=== PATIENT | female | born 1960 | race Caucasian/White ===

== ENCOUNTER 2023-03-13 19:08 | Emergency (ER) | payer OTHER ==
[2023-03-14 00:46] VITALS: BP 125/74; PULSE 61
== END 2023-03-13 20:05 | disposition home or self-care (01) ==
LOC: JD.ED 19:08
DX: S00.01XA Abrasion of scalp, initial encounter (principal); E78.00 Pure hypercholesterolemia, unspecified; I10 Essential (primary) hypertension; E11.9 Type 2 diabetes mellitus without complications; E66.9 Obesity, unspecified; Z68.33 Body mass index [BMI] 33.0-33.9, adult; Z79.899 Other long term (current) drug therapy; Z79.82 Long term (current) use of aspirin; Z87.891 Personal history of nicotine dependence; W20.8XXA Other cause of strike by thrown, projected or falling object, initial encounter
CPT/HCPCS: 99282; 99283

== ENCOUNTER 2024-02-08 22:51 | Emergency (ER) | payer OTHER ==
[2024-02-09] MEDS: Lidocaine 1% 10 ML MDV INJECT ONE (00:30)
[2024-02-09 01:42] VITALS: BP 160/90; PULSE 70
== END 2024-02-09 01:20 | disposition home or self-care (01) ==
LOC: JD.ED 22:51
DX: S92.422A Displaced fracture of distal phalanx of left great toe, initial encounter for closed fracture (principal); I10 Essential (primary) hypertension; E78.00 Pure hypercholesterolemia, unspecified; E11.9 Type 2 diabetes mellitus without complications; E66.9 Obesity, unspecified; Z79.82 Long term (current) use of aspirin; Z79.84 Long term (current) use of oral hypoglycemic drugs; Z68.26 Body mass index [BMI] 26.0-26.9, adult; W20.8XXA Other cause of strike by thrown, projected or falling object, initial encounter; Y93.89 Activity, other specified; Y99.0 Civilian activity done for income or pay
CPT/HCPCS: 12001; 73630-26-LT; 73630-LT; 99283; J3490